=== PATIENT | female | born 1995 | race Caucasian/White ===

== ENCOUNTER 2016-11-16 09:49 | Emergency (ER) | payer OTHER ==
[2016-11-16 10:13] VITALS: BP 118/69
--- NOTE | 2016-11-16 11:26 | UC ---
Complaint Female HPI - HPI Summary HPI Summary: vaginal discharge x 1 day, on amoxicillin for ear infection x 1 week. - History Of Current Complaint Chief Complaint: [facility]CGU Stated Complaint: PERSONAL Time Seen by Provider: 11/16/16 11:12 Hx Obtained From: Patient Hx Last Menstrual Period: 10/21/16 Onset/Duration: Sudden Onset, Lasting Days, Still Present Timing: Constant Severity Initially: Moderate Severity Currently: Moderate Pain Intensity: 0 - itchy and irritated Pain Scale Used: 0-10 Numeric Character: Not Applicable Aggravating Factor(s): Nothing Alleviating Factor(s): Nothing Associated Signs And Symptoms: Positive: Vaginal Discharge. Negative: Fever, Vaginal Bleeding/Discharge, Genital Swelling, Genital Blisters Related Hx: - 0, Para - 0, Prior STD Hx - none - Risk Factors Ectopic Risk Factor: Negative Ovarian Torsion Risk Factor: Negative - Allergies/Home Medications Allergies/Adverse Reactions: Allergies Allergy/AdvReac Type Severity Reaction Status Date / Time No Known Allergies Allergy Verified 11/16/16 10:12 Home Medications: Home Medications Amoxicillin CAP* 500 mg PO Q12H 11/16/16 [History Confirmed 11/16/16] Desogestrel & Ethinyl Estradio [Juleber 0.15-30 mg-Mcg] 1 tab PO DAILY 11/16/16 [History Confirmed 11/16/16] PMH/Surg Hx/FS Hx/Imm Hx Previously Healthy: Yes - Surgical History Surgical History: Yes Surgery Procedure, Year, and Place: hymenectomy 1 yr ago - Family History Known Family History: Negative: Cardiac Disease, Diabetes - Social History Alcohol Use: Occasionally Substance Use Type: None Smoking Status (MU): Never Smoked Tobacco Review of Systems Constitutional: Negative Skin: Negative Eyes: Negative ENT: Negative Respiratory: Negative Cardiovascular: Negative Gastrointestinal: Negative Genitourinary: Other - vaginal discharge Motor: Negative Neurovascular: Negative Musculoskeletal: Negative Neurological: Negative Psychological: Negative All Other Systems Reviewed And Are Negative: Yes Physical Exam Triage Information Reviewed: Yes Appearance: No Pain Distress, Well-Nourished, Ill-Appearing Vital Signs: Initial Vital Signs Pulse 87 11/16/16 10:09 Resp 16 11/16/16 10:09 BP 118/69 11/16/16 10:09 Pulse Ox 100 11/16/16 10:09 Vital Signs Reviewed: Yes Eyes: Positive: Conjunctiva Clear ENT: Positive: Normal ENT inspection Neck: Positive: Supple, Nontender Respiratory: Positive: Lungs clear, Normal breath sounds, No respiratory distress Cardiovascular: Positive: RRR, No Murmur, Pulses Normal, Brisk Capillary Refill Abdomen Description: Positive: Nontender, No Organomegaly, Soft, Other: - PELVIC EXAM; MOD AMT THICK WHITE DISCHARGE, UTERUS NORMAL SIZE, NONTENDER, ADNEXAE NONTENDER, NO MASSES Musculoskeletal: Positive: Strength Intact, ROM Intact Neurological: Positive: Alert, Muscle Tone Normal Psychological Exam: Normal Skin Exam: Normal Complaint Female Dx - Differential Dx/Diagnosis Differential Diagnosis/HQI/PQRI: Cervicitis, Sexually Transmitted Disease, Other - VAGINITIS Provider Diagnoses: YEAST VAGINITIS Discharge - Discharge Plan Condition: Stable Disposition: HOME Prescriptions: Fluconazole 150 MG (NF) [Diflucan 150 mg (NF)] 150 mg PO ONCE #3 tab Patient Education Materials: Vulvovaginal Candidiasis (ED) Referrals: Non Staff,Doctor [Primary Care Provider] - Additional Instructions: YOU MAY USE EXTERNAL MONISTAT CREAM TO HELP WITH ITCHING. TAKE THE DIFLUCAN 150MG PO Q 3 DAYS FOR 3 DOSES. FINISH THE AMOXICILLIN DIRECTED. RETURN TO URGENT CARE OR FOLLOW UP WITH YOUR PRIMARY CARE DOCTOR IF ANY NEW OR WORSENING SYMPTOMS.
== END 2016-11-16 11:46 | disposition home or self-care (01) ==
LOC: UCCORT 09:49
DX: B37.3 Candidiasis of vulva and vagina (principal)
CPT/HCPCS: 87480; 87491; 87510; 87591; 87661; 99202; G0463